=== PATIENT | female | born 1970 | race Caucasian/White ===

== ENCOUNTER → 2017-02-20 | Outpatient (CLI) | payer OTHER | END | disposition home or self-care (01) | LOC: GMAJ 10:06 | PROVIDERS: ATTEND Family Medicine | DX: F41.1 Generalized anxiety disorder (principal) ==

== ENCOUNTER → 2017-04-24 | Outpatient (CLI) | payer OTHER | END | disposition home or self-care (01) | LOC: GMAJ 15:05 | PROVIDERS: ATTEND Family Medicine | DX: E34.9 Endocrine disorder, unspecified (principal) ==

== ENCOUNTER 2018-07-15 15:23 | Emergency (ER) | payer SELFPAY ==
--- NOTE | 2018-07-15 15:26 | ED.PDOC ---
History of Present Illness - General Chief Complaint: Chest Pain/OH Stated Complaint: chest pain Time Seen by Provider: 07/15/18 15:26 Source: patient Exam Limitations: no limitations - History of Present Illness Initial Comments: Leelee Smith 48 y/o female stated while cleaning her car had onset of migraine headache and went to the house took her Maxalt and had onset of sharp chest pains going both sides of her chest which radiated up to her neck also felt nauseated no vomiting,or diaphoresis. then brought by family here at ER.She was given aspirin and NTG SL on arrival then gradually relieved her symptoms.No history of previous heart disease. Timing/Duration: 1-3 hours Severity: moderate Location: central Activities at Onset: activity Prior Chest Pain/Cardiac Workup: no prior chest pain, no prior cardiac workup Improving Factors: nothing Worsening Factors: nothing Nitro Today/Relief: 0.4 mg x 1, provided by ED Aspirin Treatment Today: 81 mg x 4, provided by ED Associated Symptoms: nausea/vomiting Allergies/Adverse Reactions: Allergies NO KNOWN ALLERGY Allergy (Verified 07/15/18 15:24) Home Medications: Ambulatory Orders Citalopram Hydrobromide [CeleXA] 20 mg PO DAILY 07/29/16 Maxalt 07/15/18 Review of Systems - Review of Systems Constitutional: States: no symptoms reported EENTM: States: no symptoms reported Respiratory: States: no symptoms reported Cardiology: States: see HPI Gastrointestinal/Abdominal: States: no symptoms reported Genitourinary: States: no symptoms reported Musculoskeletal: States: no symptoms reported Skin: States: no symptoms reported Neurological: States: no symptoms reported Endocrine: States: no symptoms reported Hematologic/Lymphatic: States: no symptoms reported Past Medical History (General) - Patient Medical History Hx Stroke: No Hx Congestive Heart Failure: No Hx Hypertension: No Hx Diabetes: No Hx Cancer: No Hx Hepatitis C: No Surgical History: cholecystectomy, other - knee,Arnold-chiari malformation repair,explore lap -sponge left in abdomen - Vaccination History Hx Tetanus, Diphtheria Vaccination: No Hx Influenza Vaccination: No Hx Pneumococcal Vaccination: No - Social History Hx Tobacco Use: No Hx Chewing Tobacco Use: No Hx Alcohol Use: No Hx Substance Use: No Hx Substance Use Treatment: No Hx Depression: No Hx Physical Abuse: No Hx Emotional Abuse: No Hx Suspected Abuse: No - Activities of Daily Living Patient Lives Alone: No - Female History Hx Last Menstrual Period: 04/26/18 - irregular ,has iud Patient : No Family Medical History - Family History Grandparents Family History: Unknown Hx Cardiac Disease: Yes - mom Hx Family Diabetes: Yes - both parents Physical Exam - Physical Exam General Appearance: Alert, Comfortable, No apparent distress Eyes, Ears, Nose, Throat Exam: normal ENT inspection, pharynx normal Neck: non-tender, full range of motion, supple Respiratory: chest non-tender, lungs clear, normal breath sounds, no respiratory distress Cardiovascular/Chest: normal peripheral pulses, regular rate, rhythm, no murmur Peripheral Pulses: radial,right: 2+, radial,left: 2+ Gastrointestinal/Abdominal: normal bowel sounds, non tender, soft, no organomegaly Extremity: normal inspection, no pedal edema, no calf tenderness Neurologic: alert, oriented x 3 Skin Exam: normal color, warm/dry Lymphatic: no adenopathy Progress - Progress Progress: 07/15/18 19:50 07/15/18 15:25 Telemetry .ONCE EKG Stat Pulse Ox Stat 07/15/18 15:26 IV Care:Saline Lock per Protoc QSHIFT Telemetry .ONCE Sodium Chloride 0.9% (Flush) [Saline Flush Syringe] 10 ml IV PRN PRN EKG Stat Pulse Ox Stat 07/15/18 15:27 EKG Assessment ONCE 07/15/18 19:04 EKG Assessment DAILY 07/15/18 19:05 EKG Assessment ONCE 07/15/18 19:15 EKG STAT Laboratory Results - last 24 hr 07/15/18 07/15/18 07/15/18 15:26 15:26 15:27 WBC 9.7 RBC 4.95 Hgb 15.2 Hct 44.8 MCV 90.7 MCH 30.8 MCHC 33.9 RDW 13.0 Plt Count 260 MPV 9.1 Absolute Neuts (auto) 6.80 Absolute Lymphs (auto) 1.90 Absolute Monos (auto) 0.80 Absolute Eos (auto) 0.00 Absolute Basos (auto) 0.10 Neutrophils % 70.7 Lymphocytes % 19.9 L Monocytes % 7.8 Eosinophils % 0.4 L Basophils % 1.2 PT 9.4 INR 0.94 PTT (SP) 23.9 D-Dimer, Quantitative 0.32 Sodium 136 Potassium 3.3 L Chloride 104 Carbon Dioxide 23 Anion Gap 12.3 BUN 19 H Creatinine 0.75 BUN/Creatinine Ratio 25.3 H Random Glucose 99 Serum Osmolality 276.1 Calcium 9.3 Magnesium 1.9 Total Bilirubin 0.4 Direct Bilirubin < 0.1 Indirect Bilirubin 0.3 AST 23 ALT 26 Alkaline Phosphatase 74 Creatine Kinase 36 CK-MB (CK-2) 1.0 CK-MB (CK-2) % Not Reportable Troponin I < 0.02 B-Natriuretic Peptide 7.6 Serum Total Protein 7.2 Albumin 4.1 Urine Color Urine Appearance Urine pH Ur Specific [place] Urine Protein Urine Glucose (UA) Urine Ketones Urine Blood Urine Nitrite Urine Bilirubin Urine Urobilinogen Ur Leukocyte Esterase Urine RBC Urine WBC Ur Epithelial Cells Urine Bacteria Urine Opiates Screen Negative Urine Barbiturates Negative Ur Phencyclidine Scrn Negative U Amphetamin/Meth Scrn Negative U Benzodiazepines Scrn Negative U Cocaine Metab Screen Negative U Cannabinoids Screen Negative 07/15/18 07/15/18 07/15/18 17:23 18:21 18:45 WBC RBC Hgb Hct MCV MCH MCHC RDW Plt Count MPV Absolute Neuts (auto) Absolute Lymphs (auto) Absolute Monos (auto) Absolute Eos (auto) Absolute Basos (auto) Neutrophils % Lymphocytes % Monocytes % Eosinophils % Basophils % PT INR PTT (SP) D-Dimer, Quantitative 0.26 Sodium Potassium Chloride Carbon Dioxide Anion Gap BUN Creatinine BUN/Creatinine Ratio Random Glucose Serum Osmolality Calcium Magnesium Total Bilirubin Direct Bilirubin Indirect Bilirubin AST ALT Alkaline Phosphatase Creatine Kinase CK-MB (CK-2) CK-MB (CK-2) % Troponin I 0.13 H* B-Natriuretic Peptide Serum Total Protein Albumin Urine Color Yellow Urine Appearance Clear Urine pH 7.0 Ur Specific [place] 1.020 Urine Protein Negative Urine Glucose (UA) Negative Urine Ketones Trace Urine Blood Trace-lysed H Urine Nitrite Negative Urine Bilirubin Negative Urine Urobilinogen 0.2 Ur Leukocyte Esterase Negative Urine RBC 0-1 Urine WBC 0 Ur Epithelial Cells 5-10 Urine Bacteria 0 Urine Opiates Screen Urine Barbiturates Ur Phencyclidine Scrn U Amphetamin/Meth Scrn U Benzodiazepines Scrn U Cocaine Metab Screen U Cannabinoids Screen 07/15/18 19:50 Vital Signs - 24 hr 07/15/18 07/15/18 07/15/18 15:23 16:23 17:00 Temperature 97 F L Pulse Rate [ 83 78 79 Apical] Respiratory 18 14 16 Rate Blood Pressure 134/74 113/70 111/69 [Left Arm] O2 Sat by Pulse 100 98 100 Oximetry 07/15/18 18:00 Temperature Pulse Rate [ 81 Apical] Respiratory 17 Rate Blood Pressure 115/66 [Left Arm] O2 Sat by Pulse 98 Oximetry 07/15/18 20:18 Stated no chest pains but chest pressure - Results/Orders Results/Orders: 07/15/18 15:25 Telemetry .ONCE EKG Stat Pulse Ox Stat 07/15/18 15:26 IV Care:Saline Lock per Protoc QSHIFT Telemetry .ONCE Sodium Chloride 0.9% (Flush) [Saline Flush Syringe] 10 ml IV PRN PRN EKG Stat Pulse Ox Stat 07/15/18 15:27 EKG Assessment ONCE 07/15/18 19:04 EKG Assessment DAILY 07/15/18 19:05 EKG Assessment ONCE 07/15/18 19:15 EKG STAT 07/15/18 20:15 Heparin Premix [Heparin/D5w 25,000U/500ML] 25,000 units Premix Bag 1 bag IVS PRN Laboratory Results - last 24 hr 07/15/18 07/15/18 07/15/18 15:26 15:26 15:27 WBC 9.7 RBC 4.95 Hgb 15.2 Hct 44.8 MCV 90.7 MCH 30.8 MCHC 33.9 RDW 13.0 Plt Count 260 MPV 9.1 Absolute Neuts (auto) 6.80 Absolute Lymphs (auto) 1.90 Absolute Monos (auto) 0.80 Absolute Eos (auto) 0.00 Absolute Basos (auto) 0.10 Neutrophils % 70.7 Lymphocytes % 19.9 L Monocytes % 7.8 Eosinophils % 0.4 L Basophils % 1.2 PT 9.4 INR 0.94 PTT (SP) 23.9 D-Dimer, Quantitative 0.32 Sodium 136 Potassium 3.3 L Chloride 104 Carbon Dioxide 23 Anion Gap 12.3 BUN 19 H Creatinine 0.75 BUN/Creatinine Ratio 25.3 H Random Glucose 99 Serum Osmolality 276.1 Calcium 9.3 Magnesium 1.9 Total Bilirubin 0.4 Direct Bilirubin < 0.1 Indirect Bilirubin 0.3 AST 23 ALT 26 Alkaline Phosphatase 74 Creatine Kinase 36 CK-MB (CK-2) 1.0 CK-MB (CK-2) % Not Reportable Troponin I < 0.02 B-Natriuretic Peptide 7.6 Serum Total Protein 7.2 Albumin 4.1 Urine Color Urine Appearance Urine pH Ur Specific [place] Urine Protein Urine Glucose (UA) Urine Ketones Urine Blood Urine Nitrite Urine Bilirubin Urine Urobilinogen Ur Leukocyte Esterase Urine RBC Urine WBC Ur Epithelial Cells Urine Bacteria Urine Opiates Screen Negative Urine Barbiturates Negative Ur Phencyclidine Scrn Negative U Amphetamin/Meth Scrn Negative U Benzodiazepines Scrn Negative U Cocaine Metab Screen Negative U Cannabinoids Screen Negative 07/15/18 07/15/18 07/15/18 17:23 18:21 18:45 WBC RBC Hgb Hct MCV MCH MCHC RDW Plt Count MPV Absolute Neuts (auto) Absolute Lymphs (auto) Absolute Monos (auto) Absolute Eos (auto) Absolute Basos (auto) Neutrophils % Lymphocytes % Monocytes % Eosinophils % Basophils % PT INR PTT (SP) D-Dimer, Quantitative 0.26 Sodium Potassium Chloride Carbon Dioxide Anion Gap BUN Creatinine BUN/Creatinine Ratio Random Glucose Serum Osmolality Calcium Magnesium Total Bilirubin Direct Bilirubin Indirect Bilirubin AST ALT Alkaline Phosphatase Creatine Kinase CK-MB (CK-2) CK-MB (CK-2) % Troponin I 0.13 H* B-Natriuretic Peptide Serum Total Protein Albumin Urine Color Yellow Urine Appearance Clear Urine pH 7.0 Ur Specific [place] 1.020 Urine Protein Negative Urine Glucose (UA) Negative Urine Ketones Trace Urine Blood Trace-lysed H Urine Nitrite Negative Urine Bilirubin Negative Urine Urobilinogen 0.2 Ur Leukocyte Esterase Negative Urine RBC 0-1 Urine WBC 0 Ur Epithelial Cells 5-10 Urine Bacteria 0 Urine Opiates Screen Urine Barbiturates Ur Phencyclidine Scrn U Amphetamin/Meth Scrn U Benzodiazepines Scrn U Cocaine Metab Screen U Cannabinoids Screen - EKG/XRAY/CT EKG: Sinus, no ST T wave changes Comments: HR-91 XRAY: chest - negative exam - Additional EKG/XRAY/Consults EKG #2: Sinus, no ST T wave changes Comments: HR-77 Departure - Departure Clinical Impression: NSTEMI (non-ST elevated myocardial infarction) Chest pain Qualifiers: Chest pain type: chest pain due to myocardial ischemia Ischemic chest pain type : unspecified angina pectoris type Qualified Code(s): I25.9 - Chronic ischemic heart disease, unspecified Time of Disposition: 20:15 Condition: Fair Departure Forms: Patient Portal Self Enrollment Referrals: Alex Stanton MD [Primary Care Provider] - 1-2 Weeks Home Medications: Ambulatory Orders Citalopram Hydrobromide [CeleXA] 20 mg PO DAILY 07/29/16 Maxalt 07/15/18 Transfer to Outside Facility - Transfer Information Accepting Provider:: -hospitalist Accepting Facility: [facility] Reason for Transfer: oil field laborer
[2018-07-15] MEDS: NITROGLYCERIN 0.4 MG 25 EA TAB SL ONE (15:40)
[2018-07-15] MEDS: ASPIRIN TABLET 325 MG TAB PO ONE (15:40)
[2018-07-15] MEDS: SODIUM CHLORIDE 0.9% 1000ML 1,000 ML IVS ONE (15:41)
--- NOTE | 2018-07-15 15:43 | RAD ---
EXAM DESCRIPTION: Chest,1 View CLINICAL HISTORY: chest pain COMPARISON: None available FINDINGS: The cardiomediastinal silhouette is unremarkable. There is no airspace consolidation or pleural effusion. The bronchovascular markings are within normal limits, and the lungs are not hyperinflated. There is no pneumothorax or acute fracture. IMPRESSION: Negative exam. Electronically signed by: Nir Rider MD 07/15/2018 3:42 PM CDT
[2018-07-15] MEDS: SODIUM CHLORIDE 0.9% (FLUSH) 10 ML SYG IV PRN (15:48)
[2018-07-15] MEDS ORDERED: HEPARIN PREMIX 25,000 UNITS in PREMIX BAG 1 BAG IVS SCH (20:15)
[2018-07-15] MEDS ORDERED: HEPARIN PREMIX 500 ML ONE (20:22)
[2018-07-15] MEDS: ATORVASTATIN 20 MG TAB PO ONE (20:51)
[2018-07-15 22:11] VITALS: BP 98/56; TEMP 98.8; O2SAT 100
== END 2018-07-15 22:20 | disposition home or self-care (01) ==
LOC: ER 15:23
DX: I21.4 Non-ST elevation (NSTEMI) myocardial infarction (principal); I25.9 Chronic ischemic heart disease, unspecified
CPT/HCPCS: 71045; 80048; 80076; 80307; 81001; 81025; 82550; 82553; 83880; 84484; 85025; 85379; 85610; 85730; 93005; J1644; J7030

== ENCOUNTER → 2020-08-12 | Outpatient (CLI) | payer SELFPAY | LOC: LAB.O 12:14 | PROVIDERS: ATTEND Internal Medicine Rheumatology | DX: R79.89 Other specified abnormal findings of blood chemistry (principal); M32.10 Systemic lupus erythematosus, organ or system involvement unspecified; Z79.899 Other long term (current) drug therapy ==